=== PATIENT | female | born 1960 | race Hispanic/Latino ===

== ENCOUNTER 2017-03-21 21:37 | Emergency (ER) | payer OTHER ==
[2017-03-21] MEDS ORDERED: Ondansetron HCl/PF 4 MG/2 ML Vial ONE (21:57)
[2017-03-21 22:15] LABS: #Basophils 0.1 thou/uL (0.0-0.2); #Eosinphils 0.1 thou/uL (0.0-0.7); #Lymphocytes 1.6 thou/uL (1.20-3.40); #Monocytes 0.5 thou/uL (0.11-0.59); #Neutrophils 9.9 thou/uL (1.40-6.50); %Basophils 0.8 % (0.0-1.0); %Eosinophils 0.4 % (0.0-10.0); %Lymphocytes 13.1 % (21.0-51.0); Hematocrit 41.2 % (36.0-47.0); Mean Platelet Volume 8.5 fL (7.4-10.4); Red Blood Cell (RBC) Count 4.65 mill/uL (4.20-5.40); White Blood Cell (WBC) Count 12.2 thou/uL (4.8-10.8)
[2017-03-21 22:37] LABS: ALT (SGPT) 42 U/L (8-55); AST (SGOT) 25 U/L (5-34); Alkaline Phosphatase 123 U/L (40-150); Anion Gap 18 mmol/L (10-20); BUN (Urea Nitrogen) 10 mg/dL (9.8-20.1); Bilirubin, Total 0.3 mg/dL (0.2-1.2); CK (CPK) 148 U/L (29-168); Calc. Creatinine Clearance 0 mL/min (70-130); Calcium 9.1 mg/dL (7.8-10.44); Carbon Dioxide 21 mmol/L (22-29); Chloride 109 mmol/L (98-107); Estimated GFR-MDRD 77; Globulin 3.2 g/dL (2.4-3.5); Protein, Total 7.7 g/dL (6.0-8.3)
[2017-03-21 22:38] LABS: Acetaminophen Less than 6.0 mcg/mL (10.0-30.0); Salicylate Less than 8.0 mg/dL (15.0-30.0)
[2017-03-21 22:50] LABS: Anion Gap 9 mmol/L (-14-95); T. Carbon Dioxide 23.8 mmol/L (1.0-85.0); vO2 Saturation-calc 97.5 % (0.0-100.0)
--- NOTE | 2017-03-21 23:49 | RAD ---
CHEST ONE VIEW: History: Dyspnea. Comparison: 06-06-16 FINDINGS: Cardiac silhouette is magnified by projection. Pulmonary vasculature is unremarkable. Mediastinum is midline with post-operative changes apparent. Mild atelectasis is present at the left lung base. Ther e is no lobar consolidation or evidence of pneumothorax. IMPRESSION: Chronic type findings are stable. POS: [facility]
== END 2017-03-22 00:05 | disposition home or self-care (01) ==
LOC: ERS 21:37
DX: K52.9 Noninfective gastroenteritis and colitis, unspecified (principal); I25.2 Old myocardial infarction; I10 Essential (primary) hypertension; E78.5 Hyperlipidemia, unspecified; Z87.891 Personal history of nicotine dependence
CPT/HCPCS: 36415; 71010; 80053; 80307; 82330; 82550; 82803; 85025; 93005; 96374; J2405

== ENCOUNTER 2017-04-12 11:09 | Emergency (ER) | payer OTHER ==
[2017-04-12 12:52] LABS: #Basophils 0.1 thou/uL (0.0-0.2); #Eosinphils 0.2 thou/uL (0.0-0.7); #Lymphocytes 2.1 thou/uL (1.20-3.40); #Monocytes 0.4 thou/uL (0.11-0.59); #Neutrophils 5.5 thou/uL (1.40-6.50); %Basophils 0.7 % (0.0-1.0); %Eosinophils 2.3 % (0.0-10.0); %Lymphocytes 25.2 % (21.0-51.0); %Monocytes 5.2 % (0.0-10.0); Mean Platelet Volume 8.8 fL (7.4-10.4); Red Blood Cell (RBC) Count 4.56 mill/uL (4.20-5.40); White Blood Cell (WBC) Count 8.2 thou/uL (4.8-10.8)
[2017-04-12 13:04] LABS: ALT (SGPT) 45 U/L (8-55); AST (SGOT) 28 U/L (5-34); Alkaline Phosphatase 113 U/L (40-150); Anion Gap 11 mmol/L (10-20); BUN (Urea Nitrogen) 16 mg/dL (9.8-20.1); Bilirubin, Total 0.3 mg/dL (0.2-1.2); Calc. Creatinine Clearance 0 mL/min (70-130); Calcium 9.4 mg/dL (7.8-10.44); Carbon Dioxide 25 mmol/L (22-29); Chloride 109 mmol/L (98-107); Estimated GFR-MDRD 83; Protein, Total 7.1 g/dL (6.0-8.3)
[2017-04-12 13:16] LABS: Troponin I Less than 0.010 ng/mL (< 0.028)
--- NOTE | 2017-04-12 13:17 | ULT ---
LEFT LOWER EXTREMITY VENOUS DOPPLER ULTRASOUND EVALUATION: HISTORY: Left lower extremity pain and swelling. FINDINGS: Multiple longitudinal and transverse images of the left lower extremity venous system are obtained us ing a multihertz linear ray transducer. Real-time, color flow, and spectral waveform Doppler analysi s is used to evaluate the left lower extremity venous system. Images demonstrate no evidence of acute or old clot seen in the left common femoral, superficial femo ral, femoral profunda, popliteal, posterior tibial vein, post trifurcation veins, and left greater sa phenous vein. IMPRESSION: No evidence of left lower extremity deep venous thrombosis. POS: [facility]
== END 2017-04-12 14:30 | disposition home or self-care (01) ==
LOC: ERS 11:09
DX: R60.0 Localized edema (principal); I25.2 Old myocardial infarction; I10 Essential (primary) hypertension; E78.5 Hyperlipidemia, unspecified; F17.210 Nicotine dependence, cigarettes, uncomplicated; Z79.899 Other long term (current) drug therapy; Z79.82 Long term (current) use of aspirin
CPT/HCPCS: 36415; 80053; 82553; 84484; 85025; 85379; 93005; 94760

== ENCOUNTER 2017-06-02 04:08 | Emergency (ER) | payer OTHER ==
[2017-06-02] MEDS ORDERED: Azithromycin 250 MG TAB ONE (06:44)
[2017-06-02] MEDS ORDERED: predniSONE 20 MG TAB ONE (06:44)
--- NOTE | 2017-06-02 07:33 | RAD ---
CHEST PA AND LATERAL: HISTORY: A 57-year-old female with a history of cough for 3 days, hives. COMPARISON: 03/21/17. FINDINGS: Heart size is within normal limits. The lungs are clear. No pneumonia, edema, pleural effusion, or other acute process. IMPRESSION: No acute intrathoracic disease. Stable from prior study. No evidence for pneumonia. POS: [facility]
== END 2017-06-02 06:53 | disposition home or self-care (01) ==
LOC: ERS 04:08
DX: J40 Bronchitis, not specified as acute or chronic (principal); I10 Essential (primary) hypertension; E78.5 Hyperlipidemia, unspecified; I25.2 Old myocardial infarction; F17.210 Nicotine dependence, cigarettes, uncomplicated; Z71.6 Tobacco abuse counseling; Z79.82 Long term (current) use of aspirin; Z79.899 Other long term (current) drug therapy
CPT/HCPCS: 71046; 94640; 99406; J7506; J7620

== ENCOUNTER 2017-06-03 16:23 | Emergency (ER) | payer OTHER ==
[2017-06-03] MEDS ORDERED: methylPREDNISolone Sod Succ/PF 125 MG/2 ML VIAL ONE (16:42)
[2017-06-03] MEDS ORDERED: diphenhydrAMINE 50 MG/ML VIAL ONE (16:42)
[2017-06-03] MEDS ORDERED: Famotidine/PF 20 mg/2ml Vial ONE (16:47)
[2017-06-03] MEDS ORDERED: Lorazepam 2 MG/ML VIAL ONE (17:12)
== END 2017-06-03 18:45 | disposition home or self-care (01) ==
LOC: ERS 16:23
DX: R06.00 Dyspnea, unspecified (principal); I25.2 Old myocardial infarction; I10 Essential (primary) hypertension; E78.5 Hyperlipidemia, unspecified; F17.210 Nicotine dependence, cigarettes, uncomplicated; Z79.82 Long term (current) use of aspirin; Z79.52 Long term (current) use of systemic steroids; Z79.899 Other long term (current) drug therapy
CPT/HCPCS: 94640; 96361; 96374; 96375; J1200; J2060; J2930; J7620; S0028

== ENCOUNTER 2017-08-16 17:43 | Observation (INO) | payer SELFPAY ==
[2017-08-16 18:04] LABS: #Eosinphils 0.3 thou/uL (0.0-0.7); #Monocytes 0.6 thou/uL (0.11-0.59); #Neutrophils 6.3 thou/uL (1.40-6.50); %Basophils 0.5 % (0.0-1.0); %Eosinophils 3.2 % (0.0-10.0); %Lymphocytes 28.9 % (21.0-51.0); %Monocytes 5.9 % (0.0-10.0); %Neutrophils 61.5 % (42.0-75.0); Mean Corpuscular HGB CONC 33.8 g/dL (32.0-36.0); Mean Corpuscular Hemoglobin 28.8 pg (27.0-31.0); Mean Corpuscular Volume 85.3 fl (81.0-99.0); Mean Platelet Volume 8.7 fL (7.4-10.4); Platelet Count 234 thou/uL (130-400); Red Blood Cell (RBC) Count 5.21 mill/uL (4.20-5.40); White Blood Cell (WBC) Count 10.2 thou/uL (4.8-10.8)
--- NOTE | 2017-08-16 18:07 | RAD ---
PORTABLE AP CHEST X-RAY 08/16/17 HISTORY: Chest pain. COMPARISON: 06/02/17. FINDINGS: Postsurgical changes related to CABG are again noted. The cardiac silhouette is magnified by projecti on but stable in size compared to the prior study. The pulmonary vasculature is within normal limits. The lungs are clear. There has been no interval change when compared to the prior exam. IMPRESSION: No acute cardiopulmonary process. POS: [facility]
[2017-08-16 18:22] LABS: Bilirubin Negative (Negative); Blood, Urine Trace (Negative); Clarity CLOUDY (Clear); Glucose, Urine (Dipstick) 100 mg/dL (Negative); Leukocyte Moderate (Negative); Nitrite Negative (Negative); Protein, Urine (Dipstick) Trace mg/dL (Neg-Trace)
[2017-08-16 18:23] LABS: Bacteria/HPF Rare-Few HPF (None Seen); Hyaline Casts/LPF 0-3 HYALINE CAST LPF (0-3 Hyaline); Pathc Cast-AUWi Flag 0.29 (0-2.49)
[2017-08-16 18:29] LABS: ALT (SGPT) 39 U/L (8-55); AST (SGOT) 26 U/L (5-34); Albumin 4.8 g/dL (3.5-5.0); Alkaline Phosphatase 136 U/L (40-150); Anion Gap 17 mmol/L (10-20); BUN (Urea Nitrogen) 13 mg/dL (9.8-20.1); Bilirubin, Total 0.5 mg/dL (0.2-1.2); Calc. Creatinine Clearance 0 mL/min (70-130); Calcium 9.7 mg/dL (7.8-10.44); Carbon Dioxide 20 mmol/L (22-29); Chloride 105 mmol/L (98-107); Estimated GFR-MDRD 65; Globulin 3.8 g/dL (2.4-3.5); Glucose 184 mg/dL (70-105); Lipase 27 U/L (8-78); Magnesium 2.4 mg/dL (1.6-2.6); Potassium 3.8 mmol/L (3.5-5.1); Protein, Total 8.6 g/dL (6.0-8.3); Sodium 138 mmol/L (136-145)
[2017-08-16 18:32] LABS: CKMB 0.7 ng/mL (0-6.6); Troponin I 0.011 ng/mL (< 0.028)
[2017-08-16 18:35] LABS: Crystals/HPF 3+ CA OXALATE HPF (Negative); Trichomonas/HPF 1+ HPF (None Seen)
[2017-08-16] MEDS ORDERED: metroNIDAZOLE 250 MG TAB ONE (18:55)
[2017-08-16] MEDS ORDERED: Nitroglycerin 2% Ointment 1 INCH/1 GM Packet ONE (18:55)
[2017-08-16 20:18] VITALS: BMI 32.8
[2017-08-16 20:53] VITALS: TEMP 97.6
[2017-08-16 21:32] LABS: Troponin I Less than 0.010 ng/mL (< 0.028)
[2017-08-17 00:45] LABS: Troponin I Less than 0.010 ng/mL (< 0.028)
[2017-08-17] MEDS ORDERED: Nitroglycerin 0.4 MG TAB (25 Tab Bottle) PO PRN (00:45)
[2017-08-17] MEDS ORDERED: Acetaminophen 325 MG TAB PO PRN (00:45)
[2017-08-17] MEDS ORDERED: Acetaminophen 650 MG Suppository PR PRN (00:45)
[2017-08-17] MEDS ORDERED: Enoxaparin Sodium 80 MG/0.8 ML SYRINGE SC SCH (01:00)
[2017-08-17] MEDS ORDERED: Nitroglycerin 0.4 MG TAB (25 Tab Bottle) SL PRN (01:10)
[2017-08-17] MEDS ORDERED: PROVENTIL INHALER 6.7 G (200 INHALATIONS) INH PRN (01:10)
--- NOTE | 2017-08-17 02:12 | HP ---
PRIMARY CARE PHYSICIAN: Dr. Elvira Jones. CHIEF COMPLAINT: Chest pain. HISTORY OF PRESENT ILLNESS: Ms. Ruelas is a pleasant 57-year-old lady who was seen at [facility] on 08/17/2017. She reports that over the last 3 days, she has had left-sided chest pain. She describes it as a squeezing sensation, 10/10 at its worst, radiating to the left side of her neck, accompanied by nausea, but not accompanied by shortness of breath, worse with exertion and relieved with rest. She denies any cough, fevers, or chills. She denies any abdominal pain. She ca me to the emergency room because of ongoing chest discomfort. REVIEW OF SYSTEMS: The following complete review of systems was negative, unless otherwise mentioned in the HPI or below: Constitutional: Weight loss or gain, ability to conduct usual activities. Sk in: Rash, itching. Eyes: Double vision, pain. ENT/Mouth: Nose bleeding, neck stiffness, pain, te nderness. Cardiovascular: Palpitations, dyspnea on exertion, orthopnea. Respiratory: Shortness of breath, wheezing, cough, hemoptysis, fever, or night sweats. Gastrointestinal: Poor appetite, abdo deandra pain, heartburn, nausea, vomiting, constipation, or diarrhea. Genitourinary: Urgency, frequen cy, dysuria, nocturia. Musculoskeletal: Pain, swelling. Neurologic/Psychiatric: Anxiety, depressi on. Allergy/Immunologic: Skin rash, bleeding tendency. PAST MEDICAL HISTORY: Significant for coronary artery disease, hypertension, and tobacco abuse. PAST SURGICAL HISTORY: Coronary artery bypass graft x3 in 2012 and uterine fibroid surgery. SOCIAL HISTORY: Patient states that she smokes 2 cigarettes a day. She denies any alcohol use or re creational drug use. FAMILY HISTORY: Her father from a heart attack. ALLERGIES: LISINOPRIL, PENICILLIN, and PREDNISONE. CURRENT MEDICATIONS: Nitroglycerin p.r.n., albuterol inhalations p.r.n., amlodipine 10 mg daily, QVA R 80 mcg 2 puffs as needed, metoprolol succinate 150 mg daily, isosorbide 30 mg daily, and atorvastat in 40 mg daily. PHYSICAL EXAMINATION: GENERAL: Ms. Ruelas is awake and alert, not in acute distress. She is obese. VITAL SIGNS: Blood pressure is 141/67, pulse is 67. She is breathing at rate of 20 and saturating 9 2% on room air. She is afebrile. EYES: No scleral icterus, No conjunctival pallor. ENT: Moist mucosal membranes, no oropharyngeal erythema or exudates. NECK: Supple, nontender, normal range of movement, trachea is midline. RESPIRATORY: Accessory muscles of breathing are not active. Chest wall movements are symmetric bila terally. Lungs are clear to auscultation, without wheeze, rhonchi, or crepitations. CARDIOVASCULAR: S1 and S2 are heard, regular. LUNGS: Peripheral pulses palpable. No carotid bruit, no pericardial rub. ABDOMEN: Soft, distended, nontender, bowel sounds heard, no hepatomegaly, no splenomegaly. NEUROLOGIC: Cranial nerves II-XII intact, deep tendon reflexes 2+. MUSCULOSKELETAL: Power is 5/5 in all 4 extremities. Normal range of movement at all major extremity joints. SKIN: No rashes or subcutaneous nodules. LYMPHATIC: No cervical lymphadenopathy. PSYCHIATRIC: Normal mood, normal affect, patient is oriented to person, place, and time. LABORATORY DATA: Ms. Ruelas's labs and investigations were reviewed. I reviewed her electrocardiogram done at her PCP's office, which shows normal sinus rhythm. She has T-wave flattening in the anterio r leads. I also reviewed her chest x-ray, which does not show any pulmonary infiltrates. She has an unremarkable CBC, normal sodium, normal potassium, normal creatinine, unremarkable liver profile, no rmal troponin I, and normal lipase. Urinalysis is positive for glucose, blood, leukocyte esterase, a nd Trichomonas. ASSESSMENT AND PLAN: Ms. Ruelas is a pleasant 57-year-old lady who was seen at [facility] on 08/17/2017. Her problem list includes: 1. Chest pain: She is presenting with chest pain that is suspicious for cardiac disease. Her last instance of chest pain was around midnight, approximately an hour before I saw her. She reports that it occurred at rest. For now, she will be treated as probable unstable angina with aspirin and Love nox and nitrates as needed. Cardiology service will be consulted in the morning for opinion and help with further management. She will be monitored on telemetry. 2. Urinary tract infection: With Trichomonas. She has received a dose of metronidazole 500 mg in [facility] emergency room. We will continue metronidazole 500 mg b.i.d. for 7 days. 3. Tobacco abuse: Patient has been counseled regarding tobacco cessation. 4. Dyslipidemia: Continue statin. 5. Hypertension: Resume home medications, monitor vital signs and titrate antihypertensives as need ed. Please note that patient was seen by her primary care physician yesterday. She was found to have abn ormal electrocardiograms and she was therefore sent to the emergency room. Many thanks for allowing me to participate in your patient's care. Please feel free to contact me wi th any questions or concerns. LEVEL OF RISK: High. LEVEL OF COMPLEXITY: High.
[2017-08-17 04:22] VITALS: BP 109/55
[2017-08-17 05:09] LABS: #Basophils 0.1 thou/uL (0.0-0.2); #Eosinphils 0.4 thou/uL (0.0-0.7); #Lymphocytes 2.4 thou/uL (1.20-3.40); #Monocytes 0.5 thou/uL (0.11-0.59); #Neutrophils 3.9 thou/uL (1.40-6.50); %Basophils 0.9 % (0.0-1.0); %Eosinophils 5.2 % (0.0-10.0); %Lymphocytes 33.8 % (21.0-51.0); %Monocytes 6.7 % (0.0-10.0); %Neutrophils 53.5 % (42.0-75.0); Hemoglobin 12.7 g/dL (12.0-16.0); Mean Corpuscular HGB CONC 32.5 g/dL (32.0-36.0); Mean Corpuscular Hemoglobin 27.8 pg (27.0-31.0); Mean Corpuscular Volume 85.4 fl (81.0-99.0); Mean Platelet Volume 9.2 fL (7.4-10.4); Platelet Count 212 thou/uL (130-400); RBC Distribution Width 11.9 % (11.5-14.5); Red Blood Cell (RBC) Count 4.59 mill/uL (4.20-5.40); White Blood Cell (WBC) Count 7.2 thou/uL (4.8-10.8)
[2017-08-17 05:14] LABS: Anion Gap 11 mmol/L (10-20); BUN (Urea Nitrogen) 13 mg/dL (9.8-20.1); Calc. Creatinine Clearance 108 mL/min (70-130); Calcium 8.7 mg/dL (7.8-10.44); Carbon Dioxide 24 mmol/L (22-29); Cardiac Risk 3.5 (Less than 4.5); Chloride 108 mmol/L (98-107); Cholesterol 131 mg/dl (< 200 Desired); Estimated GFR-MDRD Greater than 90; Glucose 114 mg/dL (70-105); HDL Cholesterol 37 mg/dL (>60 Neg Risk); LDL Cholesterol, Calculated 68 mg/dL; Potassium 3.4 mmol/L (3.5-5.1); Sodium 140 mmol/L (136-145); Triglycerides 131 mg/dL (Less than 150)
[2017-08-17] MEDS ORDERED: Amlodipine 10 MG TAB PO SCH (09:00)
[2017-08-17] MEDS ORDERED: Mometasone 100 MCG HFA INHALER INH SCH (09:00)
[2017-08-17] MEDS ORDERED: Atorvastatin Calcium 40 MG TAB PO SCH (09:00)
[2017-08-17] MEDS ORDERED: Beclomethasone 40 mcg 120 PUFF/8.7 GM INH INH SCH (09:00)
[2017-08-17] MEDS ORDERED: Metoprolol Tartrate 100 MG TAB PO SCH (09:00)
[2017-08-17] MEDS ORDERED: Aspirin 325 MG TAB PO SCH (09:00)
[2017-08-17] MEDS ORDERED: metroNIDAZOLE 500 MG TAB PO SCH (09:00)
--- NOTE | 2017-08-17 10:38 | DIS ---
DATE OF ADMISSION: 08/17/2017 The patient left against medical advice on 08/17/2017. HOSPITAL COURSE: Mr. Ruelas is a pleasant 57-year-old lady who was admitted to [facility] on 08/17/2017 for chest pain. Please refer to my history and physical note from 8 for further information. Following admission, Mr. Ruelas left the hospital against medical advice.
== END 2017-08-17 06:51 | disposition left against medical advice (07) ==
LOC: ERS 17:43 → 2SW 19:10
PROVIDERS: ADMIT Family Medicine; ATTEND Family Medicine
DX: R07.9 Chest pain, unspecified (principal); N39.0 Urinary tract infection, site not specified; F17.200 Nicotine dependence, unspecified, uncomplicated; E78.5 Hyperlipidemia, unspecified; I10 Essential (primary) hypertension; I25.10 Atherosclerotic heart disease of native coronary artery without angina pectoris; Z53.21 Procedure and treatment not carried out due to patient leaving prior to being seen by health care provider; Z95.1 Presence of aortocoronary bypass graft; Z82.49 Family history of ischemic heart disease and other diseases of the circulatory system
CPT/HCPCS: 36415; 71045; 80048; 80053; 80061; 81003; 81015; 82553; 83690; 83735; 83880; 84484; 85025; 93005; 94760; 96372; G0378; J1650

== ENCOUNTER 2017-08-28 18:22 | Observation (INO) | payer SELFPAY ==
[2017-08-28 18:48] LABS: #Basophils 0.1 thou/uL (0.0-0.2); #Eosinphils 0.4 thou/uL (0.0-0.7); #Lymphocytes 3.5 thou/uL (1.20-3.40); #Monocytes 0.6 thou/uL (0.11-0.59); #Neutrophils 6.2 thou/uL (1.40-6.50); %Basophils 0.7 % (0.0-1.0); %Lymphocytes 32.5 % (21.0-51.0); %Monocytes 5.6 % (0.0-10.0); %Neutrophils 57.3 % (42.0-75.0); Hemoglobin 14.2 g/dL (12.0-16.0); Mean Corpuscular HGB CONC 34.3 g/dL (32.0-36.0); Mean Corpuscular Hemoglobin 29.2 pg (27.0-31.0); Mean Platelet Volume 8.4 fL (7.4-10.4); Platelet Count 247 thou/uL (130-400); RBC Distribution Width 11.9 % (11.5-14.5); Red Blood Cell (RBC) Count 4.88 mill/uL (4.20-5.40); White Blood Cell (WBC) Count 10.8 thou/uL (4.8-10.8)
--- NOTE | 2017-08-28 19:08 | RAD ---
RADIOGRAPH CHEST 1 VIEW: 08/28/17 ICD-10: I25.11 HISTORY: 57-year-old female with acute chest pain. FINDINGS: There is no air space density, pulmonary edema, or pneumothorax. The lateral costophrenic angles are sharp. IMPRESSION: 1. No acute pulmonary findings. 2. Status post coronary artery bypass graft surgery is evidence for coronary atherosclerotic dis ease. jn [] POS: [facility]
[2017-08-28 19:13] LABS: ALT (SGPT) 34 U/L (8-55); AST (SGOT) 22 U/L (5-34); Albumin 4.7 g/dL (3.5-5.0); Alkaline Phosphatase 122 U/L (40-150); Anion Gap 12 mmol/L (10-20); BUN (Urea Nitrogen) 18 mg/dL (9.8-20.1); Bilirubin, Total 0.4 mg/dL (0.2-1.2); CK (CPK) 99 U/L (29-168); Calc. Creatinine Clearance 0 mL/min (70-130); Calcium 9.8 mg/dL (7.8-10.44); Carbon Dioxide 25 mmol/L (22-29); Chloride 105 mmol/L (98-107); Estimated GFR-MDRD 76; Globulin 3.3 g/dL (2.4-3.5); Glucose 122 mg/dL (70-105); Potassium 3.9 mmol/L (3.5-5.1); Sodium 138 mmol/L (136-145)
[2017-08-28 19:19] LABS: CKMB 0.7 ng/mL (0-6.6); Troponin I Less than 0.010 ng/mL (< 0.028)
[2017-08-28] MEDS ORDERED: Nitroglycerin 0.4 MG TAB (25 Tab Bottle) ONE (19:25)
[2017-08-28] MEDS ORDERED: Ondansetron ODT 4 MG TAB ONE (19:25)
[2017-08-28 21:59] LABS: Troponin I Less than 0.010 ng/mL (< 0.028)
[2017-08-28] MEDS ORDERED: Ondansetron HCl/PF 4 MG/2 ML Vial IVP PRN ×2 (22:30→23:43)
[2017-08-28] MEDS ORDERED: Ondansetron ODT 4 MG TAB SL PRN (22:30)
[2017-08-28] MEDS ORDERED: Nitroglycerin 0.4 MG TAB (25 Tab Bottle) SL PRN (22:33)
[2017-08-28] MEDS ORDERED: Nitroglycerin 0.4 MG TAB (25 Tab Bottle) PO PRN (23:43)
[2017-08-28] MEDS ORDERED: Acetaminophen 650 MG Suppository PR PRN (23:43)
[2017-08-28] MEDS ORDERED: Acetaminophen 325 MG TAB PO PRN (23:43)
[2017-08-28] MEDS ORDERED: Bisacodyl 5 MG TAB PO PRN (23:43)
--- NOTE | 2017-08-29 00:13 | HP ---
PRIMARY CARE PROVIDER: Elvira Jones M.D. CHIEF COMPLAINT: Chest pain. HISTORY OF PRESENT ILLNESS: Ms. Ruelas is a pleasant 57-year-old lady, who was seen at [facility] on 08/28/2017. She was admitted to this facility on 08/16/2017 for left-sided yovani st pain. She left against medical advice before she could have the stress test. She reports that over the last 5 days she has had on and off left-sided chest pain. She describes it as a pressure-like sensation, dull, squeezing, accompanied by vomiting, and shortness of breath. Sh shaka kept using more nitro, which is why she got concerned and presented to the emergency room. She da cribes that the pain was nonradiating, 10/10 at its worst. She is currently pain free. REVIEW OF SYSTEM: All other systems reviewed and found to be negative. PAST MEDICAL HISTORY: Significant for coronary artery disease, status post coronary artery bypass gr aft; hypertension; and tobacco use. PAST SURGICAL HISTORY: Coronary artery bypass graft x3 in 2011 and uterine fibroid surgery. SOCIAL HISTORY: Denies alcohol use, denies recreational drug use. Smokes 2 cigarettes a day. FAMILY HISTORY: Her father from heart attack. ALLERGIES: LISINOPRIL, PENICILLIN, and PREDNISONE. CURRENT MEDICATIONS: Nitroglycerin p.r.n., albuterol inhalations p.r.n., amlodipine 10 mg daily, QVA R 80 mcg 2 puffs as needed, metoprolol succinate 150 mg daily, isosorbide 30 mg daily, and atorvastat in 40 mg daily. PHYSICAL EXAMINATION: GENERAL: On examination, Ms. Ruelas is awake and alert, not in acute distress. VITAL SIGNS: Blood pressure is 146/64, although it was elevated at 191/98 earlier. Pulse is 74, she is breathing at rate of 22 and saturating 95% on room air. She is afebrile. EYES: No scleral icterus. No conjunctival pallor. ENT: Moist mucosal membranes, no oropharyngeal erythema or exudates. NECK: Supple, nontender, normal range of movement, trachea is midline. RESPIRATORY: Accessory muscles of breathing are not active. Chest wall movements are symmetric bila terally. Lungs are clear to auscultation without wheeze, rhonchi or crepitations. CARDIOVASCULAR: S1 and S2 are heard, regular. Peripheral pulses palpable. No carotid bruit, no per icardial rub. ABDOMEN: Soft, nontender, bowel sounds heard, no hepatomegaly, no splenomegaly. NEUROLOGIC: Cranial nerves II-XII intact. Deep tendon reflexes are 2+. MUSCULOSKELETAL: Power is 5/5 in all 4 extremities. SKIN: No rashes or subcutaneous nodules. LYMPHATIC: No cervical lymphadenopathy. PSYCHIATRIC: Normal mood, normal affect. The patient is oriented to person, place, and time. IMAGING AND LABORATORY DATA: Ms. Ruelas's labs and investigations were reviewed. I reviewed her elect rocardiogram, which shows normal sinus rhythm, no ST changes to suggest an acute coronary syndrome. I also reviewed her chest x-ray, which does not show any pulmonary infiltrates. She has an unremarka ble CBC and an unremarkable comprehensive metabolic profile. Troponin I is negative x2. ASSESSMENT AND PLAN: Ms. Ruelas is a pleasant 57-year-old lady, who was seen at [facility] on 08/28/2017. Her problem list includes: 1. Chest pain: Ms. Ruelas will be admitted to the hospital for telemetry monitoring and stress test. 2. Tobacco abuse: The patient has been counseled regarding tobacco cessation. 3. Dyslipidemia: Continue statin. 4. Hypertension: Monitor vital signs, titrate antihypertensives as needed. Many thanks for allowing me to participate in your patient's care. Please feel free to contact me wi th any questions or concerns. LEVEL OF RISK: High. LEVEL OF COMPLEXITY: High.
[2017-08-29 01:05] LABS: Troponin I Less than 0.010 ng/mL (< 0.028)
[2017-08-29] MEDS ORDERED: hydrALAZINE 20 MG/ML VIAL SLOW IVP SCH (03:00)
[2017-08-29 04:59] LABS: #Eosinphils 0.4 thou/uL (0.0-0.7); #Lymphocytes 2.8 thou/uL (1.20-3.40); #Monocytes 0.5 thou/uL (0.11-0.59); #Neutrophils 4.5 thou/uL (1.40-6.50); %Basophils 0.5 % (0.0-1.0); %Eosinophils 5.4 % (0.0-10.0); %Lymphocytes 34.2 % (21.0-51.0); %Monocytes 5.5 % (0.0-10.0); %Neutrophils 54.4 % (42.0-75.0); Hemoglobin 13.3 g/dL (12.0-16.0); Mean Corpuscular HGB CONC 33.8 g/dL (32.0-36.0); Mean Corpuscular Hemoglobin 28.6 pg (27.0-31.0); Mean Corpuscular Volume 84.8 fl (81.0-99.0); Mean Platelet Volume 8.7 fL (7.4-10.4); Platelet Count 232 thou/uL (130-400); RBC Distribution Width 11.8 % (11.5-14.5); Red Blood Cell (RBC) Count 4.63 mill/uL (4.20-5.40); White Blood Cell (WBC) Count 8.3 thou/uL (4.8-10.8)
[2017-08-29 05:12] LABS: Anion Gap 13 mmol/L (10-20); BUN (Urea Nitrogen) 15 mg/dL (9.8-20.1); Calc. Creatinine Clearance 106 mL/min (70-130); Calcium 9.2 mg/dL (7.8-10.44); Carbon Dioxide 24 mmol/L (22-29); Chloride 107 mmol/L (98-107); Estimated GFR-MDRD 90; Glucose 100 mg/dL (70-105); Potassium 3.6 mmol/L (3.5-5.1); Sodium 140 mmol/L (136-145)
[2017-08-29] MEDS ORDERED: Enoxaparin Sodium 40 MG/0.4 ML SYRINGE SC SCH (09:00)
[2017-08-29] MEDS ORDERED: Aspirin 325 MG TAB PO SCH (09:00)
[2017-08-29] MEDS ORDERED: Regadenoson 0.4 MG/5 ML SYRINGE ONE (09:56)
[2017-08-29 13:01] VITALS: BP 134/75; TEMP 97.3
--- NOTE | 2017-08-29 14:02 | NM ---
NUCLEAR MEDICINE CARDIAC MYOCARDIAL PERFUSION SPECT EJECTION FRACTION STUDY WALL MOTION CINE: Date: 08/29/17 HISTORY: 57-year-old female smoker with coronary artery disease, hypertension, and family history of coronary artery disease, status post coronary artery bypass graft surgery, presents with acute chest pain. TECHNIQUE: Number of days: 1 Rest study: Tc99m sestamibi (Cardiolite) dose: 9.0 mCi Pharmacologic stress: Lexiscan dose: 0.4 mg Stress study: Tc99m sestamibi (Cardiolite) dose: 27.0 mCi FINDINGS: CARDIAC (MYOCARDIAL PERFUSION) SPECT There is no fixed or reversible perfusion defect. EJECTION FRACTION STUDY EF = 76% WALL MOTION CINE The septum is hypokinetic. The rest of the left ventricle moves normally. IMPRESSION: 1. No evidence of reversible ischemia. 2. Septal hypokinesis. 3. Normal ejection fraction of 76%. ATRUR Kumari POS: [place]
--- NOTE | 2017-08-29 16:42 | DIS ---
DATE OF ADMISSION: 08/28/2017 DATE OF DISCHARGE: 08/29/2017 DISCHARGE DIAGNOSES: 1. Chest pain, non-cardiac. 2. Coronary artery disease, chronic and stable. 3. Tobacco abuse. 4. Dyslipidemia. 5. Hypertension. CONSULTATIONS: None. PERTINENT LABORATORY DATA AND X-RAY FINDINGS: Complete metabolic profile within normal limits. Trop onin I negative x3. CBC within normal limits. Portable chest x-ray dated 08/28/2017 showed no acute cardiopulmonary process. Cardiolite stress test dated 08/29/2017 showed no evidence for reversible ischemia. Ejection fraction of 76%. Septal hypokinesis noted chronic. HOSPITAL COURSE: The patient was observed on the telemetry unit after presenting with chest pain in the context of known coronary artery disease status post coronary artery bypass grafting in 2011. Th e patient underwent serial troponins which were negative x3 proceeding to Cardiolite stress testing s howing no evidence for reversible ischemia with calculated ejection fraction of 76%. Septal hypokine sis was noted; however, this is a chronic condition. Telemetry monitoring showed sinus mechanism wit hout evidence of acute arrhythmia or dysrhythmia. The patient overall remained clinically stable thr oughout the hospital course, tolerating regular oral intake, ambulating without assistance or difficu lty. I have examined the patient at time of discharge and discussed pertinent laboratory and radiogr aphic studies as well as stress test results at which point, patient has verbalized understanding and agreement. The patient will be discharged home on 08/29/2017. DISCHARGE MEDICATIONS: 1. ProAir HFA 2 puffs inhaled q.4 hours p.r.n. 2. Amlodipine 10 mg one tab p.o. daily. 3. Enteric-coated aspirin 325 mg p.o. daily. 4. Lipitor 40 mg p.o. daily. 5. QVAR 1 puff inhaled daily. 6. Isosorbide mononitrate 30 mg p.o. daily. 7. Lopressor 150 mg p.o. daily. 8. Nitroglycerin 0.4 mg sublingually every 5 minutes p.r.n. chest pain. FOLLOWUP: Patient will follow up with her primary care provider, Dr. Elvira Jones within 7 days o f discharge. CONDITION ON DISCHARGE: Stable. ACTIVITY: Ad bobby. DIET: Heart healthy. CODE STATUS: FULL. DISPOSITION: Home 08/29/2017.
== END 2017-08-29 14:48 | disposition home or self-care (01) ==
LOC: ERS 18:22 → 2SW 20:20
PROVIDERS: ADMIT Internal Medicine; ATTEND Internal Medicine
DX: R07.89 Other chest pain (principal); I25.10 Atherosclerotic heart disease of native coronary artery without angina pectoris; E78.5 Hyperlipidemia, unspecified; I10 Essential (primary) hypertension; F17.210 Nicotine dependence, cigarettes, uncomplicated; Z79.51 Long term (current) use of inhaled steroids; Z79.899 Other long term (current) drug therapy; Z88.0 Allergy status to penicillin; Z88.8 Allergy status to other drugs, medicaments and biological substances; Z95.1 Presence of aortocoronary bypass graft; Z98.890 Other specified postprocedural states; Z82.49 Family history of ischemic heart disease and other diseases of the circulatory system
CPT/HCPCS: 36415; 71045; 78452; 80048; 80053; 82550; 82553; 84484; 85025; 93005; 93017; 94760; 96372; 96374; 99406; A4216; A9500; G0378; J0360; J1650; J2785; Q0162

== ENCOUNTER 2018-02-27 18:26 | Emergency (ER) | payer SELFPAY ==
[2018-02-27 18:55] LABS: Bilirubin Negative (Negative); Blood, Urine Trace (Negative); Clarity CLOUDY (Clear); Glucose, Urine (Dipstick) Negative (Negative); Leukocyte Large (Negative); Nitrite Negative (Negative); Protein, Urine (Dipstick) Trace mg/dL (Neg-Trace); Specific Gravity, Urine 1.017 (1.002-1.036); Urobilinogen 0.2 mg/dL (0.2-1.0)
[2018-02-27 18:57] LABS: Hyaline Casts/LPF 4-6 HYALINE CAST LPF (0-3 Hyaline); Pathc Cast-AUWi Flag 0.58 (0-2.49)
[2018-02-27] MEDS ORDERED: Ondansetron ODT 4 MG TAB ONE (19:01)
[2018-02-27] MEDS ORDERED: Acetaminophen 500 MG TAB ONE (19:01)
[2018-02-27 19:11] LABS: Bacteria/HPF Rare-Few HPF (None Seen); Crystals/HPF 4+ CA OXALATE HPF (Negative); Trichomonas/HPF 1+ HPF (None Seen)
[2018-02-27 19:14] LABS: #Basophils 0.1 thou/uL (0.0-0.2); #Eosinphils 0.3 thou/uL (0.0-0.7); #Lymphocytes 2.5 thou/uL (1.20-3.40); #Monocytes 0.5 thou/uL (0.11-0.59); #Neutrophils 5.4 thou/uL (1.40-6.50); %Basophils 0.9 % (0.0-1.0); %Eosinophils 3.5 % (0.0-10.0); %Lymphocytes 28.9 % (21.0-51.0); %Monocytes 5.8 % (0.0-10.0); Hemoglobin 13.9 g/dL (12.0-16.0); Mean Corpuscular HGB CONC 33.8 g/dL (32.0-36.0); Mean Corpuscular Hemoglobin 28.5 pg (27.0-31.0); Mean Corpuscular Volume 84.5 fL (78.0-98.0); Mean Platelet Volume 9.5 fL (7.4-10.4); Platelet Count 225 thou/uL (130-400); RBC Distribution Width 12.1 % (11.5-14.5); Red Blood Cell (RBC) Count 4.87 mill/uL (4.20-5.40); White Blood Cell (WBC) Count 8.8 thou/uL (4.8-10.8)
[2018-02-27 19:32] LABS: ALT (SGPT) 47 U/L (8-55); AST (SGOT) 27 U/L (5-34); Albumin 4.7 g/dL (3.5-5.0); Alkaline Phosphatase 131 U/L (40-150); Anion Gap 16 mmol/L (10-20); BUN (Urea Nitrogen) 11 mg/dL (9.8-20.1); Bilirubin, Total 0.4 mg/dL (0.2-1.2); Calc. Creatinine Clearance 0 mL/min (70-130); Calcium 9.6 mg/dL (7.8-10.44); Carbon Dioxide 21 mmol/L (22-29); Chloride 107 mmol/L (98-107); Estimated GFR-MDRD 76; Globulin 3.3 g/dL (2.4-3.5); Glucose 114 mg/dL (70-105); Potassium 3.5 mmol/L (3.5-5.1); Sodium 140 mmol/L (136-145)
[2018-02-27] MEDS ORDERED: Lidocaine 1% w/Epinephrine 1:100K 20 ML VIAL ONE (19:58)
[2018-02-27] MEDS ORDERED: Bacitracin Zinc 1 Packet ONE (20:13)
[2018-02-27] MEDS ORDERED: Adacel (T-DAP) 0.5 ML VIAL ONE (20:13)
== END 2018-02-27 20:39 | disposition home or self-care (01) ==
LOC: ERS 18:26
DX: L02.212 Cutaneous abscess of back [any part, except buttock and flank] (principal); N39.0 Urinary tract infection, site not specified; A59.9 Trichomoniasis, unspecified; I25.2 Old myocardial infarction; I10 Essential (primary) hypertension; E78.5 Hyperlipidemia, unspecified; F17.210 Nicotine dependence, cigarettes, uncomplicated; Z79.899 Other long term (current) drug therapy
CPT/HCPCS: 10061; 36415; 80053; 81003; 81015; 85025; 87070; 87086; 87205; 90471; 90715; J2001; Q0162